=== PATIENT | male | born 1950 | race Caucasian/White ===

== ENCOUNTER 2022-06-09 09:26 | Observation (INO) ==
[2022-06-09] MEDS ORDERED: Morphine 4 MG/ML VIAL (1 ml) IV ONE ×2 (09:42→11:03)
[2022-06-09] MEDS ORDERED: Ondansetron 4 mg VIAL 2 MG/ML 2 ml VIAL IV ONE (09:42)
[2022-06-09] MEDS ORDERED: Lactated Ringers 1000 ml BAG 1,000 ML IV ONE ×2 (09:42→12:17)
[2022-06-09 10:06] LABS: Hematocrit 47 % (42-52); Hemoglobin 15.7 g/dL (14.0-18.0); Mean Corpuscular HGB Conc 34 g/dL (31-36); Mean Corpuscular Hemoglobin 32 pg (27-31); Mean Corpuscular Volume 94 fL (80-94); Mean Platelet Volume 9.2 fL (7.4-10.4); Platelet Count 209 10^3/uL (150-450); Red Blood Count 4.96 10^6 /uL (4.18-5.48); Red Cell Distribution Width 13 % (10-15); White Blood Count 14.4 10^3/uL (3.5-10.8)
[2022-06-09 10:30] LABS: ABS Basophils 0.1 10^3/ul (0-0.2); ABS Eosinophils 0.1 10^3/ul (0-0.6); ABS Lymphocytes 6.1 10^3/ul (1.0-4.8); ABS Monocytes 0.8 10^3/ul (0-0.8); ABS Neutrophils 7.3 10^3/ul (1.5-7.7); Eosinophil % 0.7 %; Lymphocyte % 42.6 %; Nucleated Red Blood Cells % 0.2
[2022-06-09 10:51] LABS: Albumin 4.3 g/dL (3.2-5.2); Albumin/Globulin Ratio 1.7 (1-3); Globulin 2.6 g/dL (2-4); Potassium 4.7 mmol/L (3.5-5.0); Total Bilirubin 0.5 mg/dL (0.2-1.0); Total Protein 6.9 g/dL (6.4-8.9); eGFR CKD-EPI 46.1 (>60)
[2022-06-09 12:02] LABS: Urine Appearance Turbid; Urine Bilirubin Negative (Negative); Urine Blood 3+ (Negative); Urine Color Amber; Urine Glucose 2+(150 mg/dL) (Negative); Urine Ketones Negative (Negative); Urine Nitrite Negative (Negative); Urine Protein 2+(100 mg/dL) (Negative); Urine Specific Gravity 1.019 (1.002-1.030); Urine Urobilinogen Negative (Negative)
[2022-06-09 12:13] LABS: Urine Bacteria 1+ (Absent); Urine Red Blood Cell 3+(>10/hpf) (Absent); Urine Transitional Epithelial Present (Absent); Urine White Blood Cell 3+(>20/hpf) (Absent)
[2022-06-09] MEDS ORDERED: cefTRIAXone 1 gm/50 mL D5W 1 GM/50 ML BAG IV ONE (12:33)
[2022-06-09] MEDS ORDERED: Lactated Ringers 1000 ml BAG 1,000 ML IV SCH (14:00)
[2022-06-09] MEDS ORDERED: Dextrose 50% Syringe 50 ml 25 GM/50 ML SYRINGE IV PUSH PRN (14:25)
[2022-06-09] MEDS: Ondansetron 4 mg VIAL 2 MG/ML 2 ml VIAL IV PRN (18:12)
[2022-06-09] MEDS: Lactated Ringers 1000 ml BAG 1,000 ML IV SCH (18:28)
[2022-06-10] MEDS: Lactated Ringers 1000 ml BAG 1,000 ML IV SCH (05:04)
[2022-06-10 05:55] LABS: Hematocrit 43 % (42-52); Hemoglobin 14.9 g/dL (14.0-18.0); Mean Corpuscular HGB Conc 35 g/dL (31-36); Mean Corpuscular Hemoglobin 32 pg (27-31); Mean Corpuscular Volume 94 fL (80-94); Mean Platelet Volume 9.2 fL (7.4-10.4); Platelet Count 181 10^3/uL (150-450); Red Blood Count 4.59 10^6 /uL (4.18-5.48); Red Cell Distribution Width 13 % (10-15); White Blood Count 13.2 10^3/uL (3.5-10.8)
[2022-06-10 06:27] LABS: Calcium 8.4 mg/dL (8.6-10.3); Magnesium 1.6 mg/dL (1.9-2.7); Potassium 4.5 mmol/L (3.5-5.0); eGFR CKD-EPI 57.1 (>60)
[2022-06-10] MEDS ORDERED: Magnesium Sulf 4 GM/100 ML IV 4,000 MG/100 ML BAG IVPB ONE (07:01)
[2022-06-10] MEDS: Aspirin EC 81 mg TAB.EC (enteric coated) PO SCH (08:21)
[2022-06-10] MEDS ORDERED: cefTRIAXone 1 gm/50 mL D5W 1 GM/50 ML BAG IV SCH (13:00)
[2022-06-10] MEDS ORDERED: Iohexol 180 (CONTRAST) 20 ML SDV IV ONE (15:33)
[2022-06-10] MEDS ORDERED: fentaNYL 100 mcg/2 ml 50 MCG/ML VIAL ONE (15:54)
[2022-06-10] MEDS ORDERED: Midazolam 2 mg/2 ml VIAL 1 mg/ml 2 ml VIAL (2 mg) ONE (15:55)
[2022-06-10] MEDS ORDERED: Propofol 10 MG/ML 20 ML BTL ONE (15:55)
[2022-06-10] MEDS ORDERED: Lidocaine 2% PF 5 ML VIAL ONE ×2 (15:55→16:20)
[2022-06-10] MEDS ORDERED: Phenylephrine 40 mcg/mL 10mL (400mcg) SYRINGE ONE (17:06)
[2022-06-10] MEDS ORDERED: Ondansetron 4 mg VIAL 2 MG/ML 2 ml VIAL ONE (17:13)
[2022-06-10] MEDS ORDERED: Dexamethasone IV 4 MG/ML VIAL 1 ml VIAL ONE (17:13)
[2022-06-10] MEDS: Ondansetron 4 mg VIAL 2 MG/ML 2 ml VIAL IV PRN (20:53)
[2022-06-10] MEDS ORDERED: Morphine 2 MG/ML SYRINGE IV ONE (23:38)
[2022-06-11 06:20] LABS: ABS Lymphocytes 2.9 10^3/ul (1.0-4.8); ABS Monocytes 0.2 10^3/ul (0-0.8); ABS Neutrophils 8.3 10^3/ul (1.5-7.7); Eosinophil % 0.4 %; Hematocrit 44 % (42-52); Hemoglobin 15.2 g/dL (14.0-18.0); Lymphocyte % 25.5 %; Mean Corpuscular HGB Conc 34 g/dL (31-36); Mean Corpuscular Hemoglobin 33 pg (27-31); Mean Corpuscular Volume 96 fL (80-94); Nucleated Red Blood Cells % 0.2; Platelet Count 197 10^3/uL (150-450); Red Blood Count 4.64 10^6 /uL (4.18-5.48); Red Cell Distribution Width 13 % (10-15); White Blood Count 11.4 10^3/uL (3.5-10.8)
[2022-06-11 06:35] LABS: Calcium 8.4 mg/dL (8.6-10.3); Magnesium 2.2 mg/dL (1.9-2.7); eGFR CKD-EPI 51.1 (>60)
[2022-06-11 06:36] LABS: Potassium 5.3 mmol/L (3.5-5.0)
[2022-06-11 08:31] VITALS: BP 101/76
[2022-06-11] MEDS ORDERED: NS 0.9% 500 ml BAG 500 ML IV ONE (08:32)
[2022-06-11] MEDS: Aspirin EC 81 mg TAB.EC (enteric coated) PO SCH (08:49)
[2022-06-11 08:53] LABS: Calcium 8.2 mg/dL (8.6-10.3); Potassium 4.8 mmol/L (3.5-5.0); eGFR CKD-EPI 54.7 (>60)
== END 2022-06-11 13:20 | disposition home or self-care (01) ==
LOC: ED 09:26 → EDHOLD 09:26 → MED 17:26
PROVIDERS: ADMIT Internal Medicine; ATTEND Internal Medicine